=== PATIENT | male | born 1980 | race Two or more races ===

== ENCOUNTER → 2018-10-25 | Outpatient (CLI) | payer OTHER ==
[~2018-10-25] MED LIST: [UNRECOGNIZED DRUG - REMARK]
--- NOTE | 2018-10-25 22:35 | PAIN ---
DATE OF SERVICE: 10/25/2018 INITIAL CONSULTATION FOR PAIN CLINIC CHIEF COMPLAINT: Low back and right lower extremity pain. HISTORY OF PRESENT ILLNESS: This is a 38-year-old male who presents with history of pain in the low back, right lower extremity about 2 years now, not a result of any specific injury or action he is aware of, which is gradually getting worse with time. The patient is active duty with [employer] and has had increased activity and pain resultant over the past 2 years. The patient reports it is stabbing, throbbing, shooting pain, is tingling with numbness and radiation in the right lower extremity, intermittent in intensity. It is cramping and aching on the right side. The patient reports it keeps him awake from sleep at least once or twice a night, does affect his sleep, does affect his bowel or bladder control and he has some increased urgency but no loss of continence reports with urine. The patient reports it does affect his ability to walk, especially with running or jogging. He can only about one mile on his toes, become numb on his right foot and his leg is fatigued heavily where he is limping. The patient reports he has had physical therapy as well as counseling and also doing exercise currently. Physical therapy has been at [place], [place] when he was stationed there in the last year. The patient rates his disability rating from 0 to 10, 10 being the worst, is a 7 with family and home responsibilities, 9 with recreational activities, 6 with social activity, occupation and sexual behavior, self-care and life support activities. The patient did have MRI scan showing degenerative disk changes at L4-L5 and L5-S1. The patient reports no loss of motor function but significant fatigability with right lower extremity with most activities, especially running. PAST MEDICAL HISTORY: Significant only for previous kidney stones. PAST SURGICAL HISTORY: No previous surgeries. CURRENT MEDICATIONS: Include only [id number] anti-inflammatories. SOCIAL HISTORY: The patient reports he does have prescription of pain medication, he is not sure of the name of it but does not take it frequently. FAMILY HISTORY: Significant for no major medical problems or conditions. SOCIAL HISTORY: The patient drinks about one 6-pack of beer a month. He does not smoke but does use chewing tobacco. He is not using illegal, illicit or recreational drugs. He is , lives with his spouse, lives locally in [place], [place]. Again is active duty. ALLERGIES: The patient has no known drug allergies. REVIEW OF SYSTEMS: The patient's review of systems is positive for those items mentioned in history of present illness. All systems reviewed and otherwise negative. It is complete, full and well documented on the patient's chart. PHYSICAL EXAMINATION: VITAL SIGNS: The patient's blood pressure 119/78, pulse 61, respirations 16, temperature is 98.4 degrees Fahrenheit. Height is 5 feet 6 inches and weight is 195 pounds. GENERAL: The patient is awake, alert, oriented, appropriate and very pleasant demeanor. HEENT: Head is normocephalic and atraumatic. Extraocular movements are intact and symmetrical. Oral cavity, mucous membranes are moist and pink. Dentition intact. NECK: Shows anterior throat supple without palpable lymphadenopathy noted. Swallow reflex symmetrical. CHEST: Shows normal on inspection. Breath sounds clear to auscultation bilaterally. HEART: Shows S1 and S2 clear. No murmurs auscultated. ABDOMEN: Soft, nontender and nondistended. No palpable organomegaly is noted. No rebound or guarding demonstrated. BACK: Shows spine grossly in the midline. Normal appearing thoracic kyphosis and some minor flattening of lumbar lordotic curvature. Lumbar paraspinous musculature shows symmetrical on inspection, on palpation shows some moderate tenderness diffusely but only diffusely bilaterally without radiation. The patient shows good rotational motion of lumbar spine, both laterally as well as extension and flexion without significant pain reported. No tenderness over the spinous processes, sacrum or sacroiliac regions. EXTREMITIES: Lower extremities show deep tendon reflexes at 2+ in the patellar, 1+ tendo-calcaneus tendons. Motor exam is approximately 4 on a scale of 5 with right dorsiflexion, extension, quadriceps and hamstring and 5/5 on the left. Peripheral pulses are 1+ posterior tibia. No peripheral edema is noted. Lower extremities are warm and dry to touch, equal in color and appearance. The patient's straight leg raise noted to be positive on the right at about 40 degrees, negative on the left. Gaenslen's and Chriss's maneuvers are negative bilaterally. The patient is able to stand, stand on his toes without difficulty or loss of balance, walks with a slight favoring gait, does appear to favor the right lower extremity with a slight limp, not using any assistive devices such as canes or walkers to ambulate. SKIN: The patient's skin shows warm and dry, good turgor. No edema. No sores, rashes or bruising. IMPRESSION: 1. This is a 38-year-old male with approximate 2-year history of increasing pain in the low back, right lower extremity in a radicular fashion affecting mostly the L4-L5 dermatomal distribution. 2. MRI scan of the lumbar spine as noted. 3. History of kidney stones. PLAN: Options were discussed with the patient including conservative medical management, physical therapies, interventional techniques and he would like to pursue interventional techniques. He has done physical therapy already, still doing physical therapy and exercises on his own and is very active with duty and exercising and running. We discussed a lumbar epidural steroid injection using description as well as anatomical models to describe the procedure well. The patient will wait for preauthorization. We will plan on the L4-L5 level lumbar epidural steroid injection for his radiculopathy in the right lower extremity, L4-L5 dermatomal distribution. The patient will continue to do stretching and strengthening exercises in the meantime and stay as active as possible as tolerated. RUSSELL GARCIA MD DR: DANIELLA/shiraz JOB#: [id number] / [id number]
== END | disposition home or self-care (01) ==
LOC: PNCL 08:58
PROVIDERS: ATTEND Anesthesiology
DX: M79.604 Pain in right leg (principal)
CPT/HCPCS: G0463

== ENCOUNTER → 2018-11-08 | Outpatient (CLI) | payer OTHER ==
[~2018-11-08] MED LIST changes: +IOHEXOL 180 MG/ML 10 ML VIAL. ONE; +methylPREDNISolone ACETATE 40 MG/ML VIAL. ONE; +methylPREDNISolone ACETATE 80 MG/ML VIAL. ONE
--- NOTE | 2018-11-08 09:58 | PAIN ---
DATE OF SERVICE: 11/08/2018 PROGRESS NOTE FOR PAIN CLINIC DIAGNOSES: Lumbar radiculopathy with lumbar degenerative disk disease. HISTORY OF PRESENT ILLNESS: The patient is a 38-year-old male who returns for followup status post initial evaluation and preauthorization for lumbar epidural steroid injection. He still reports pain in low back, right lower extremity as it was significantly unchanged. The patient reports it is a 6 on a scale of 10 at its worst in the past week, 5 on average, 4 at its least and is a 5 today. The patient reports aching, tingling on and off in intensity, worse with walking, standing, changing positions and activity, awakens him from sleep very rarely, but he notes he sleeps about 4 hours a night. The patient reports no new motor or sensory deficits, no new bowel or bladder incontinence or other complaints. PHYSICAL EXAMINATION: VITAL SIGNS: The patient's blood pressure 108/72, pulse 63, respirations 16, temperature 98.1 degrees Fahrenheit, weight is 196 pounds. GENERAL: The patient is awake, alert, oriented, appropriate, very pleasant demeanor. HEENT: Shows normocephalic, atraumatic. Extraocular movements are intact and symmetrical. Oral cavity: Mucous membranes moist and pink. Dentition is intact. NECK: Shows anterior throat supple without palpable lymphadenopathy noted. Swallow reflex symmetrical. CHEST: Shows normal on inspection. Breath sounds are clear to auscultation bilaterally. HEART: Shows S1, S2 clear. No murmurs auscultated. ABDOMEN: Soft, nontender, nondistended. No palpable organomegaly is noted. No rebound or guarding demonstrated. BACK: Shows spine grossly in the midline. Normal appearing thoracic kyphosis and minor flattening of lumbar lordotic curvature. Lumbar paraspinous muscle shows symmetrical on inspection with some moderate tenderness in the low lumbar distribution bilaterally, diffusely without radiation. EXTREMITIES: The patient's lower extremities show deep tendon reflexes 2+ in the patellar, 1+ in the tendo-calcaneus tendons. Motor exam is approximately 4 on a scale of 5 on the right with dorsiflexion and extension 5/5 on the left. Peripheral pulses are 1+ in the posterior tibia. No peripheral edema is noted. The patient's MRI was reviewed as well showing L4-L5 disk extrusion with contact of the right L5 nerve root. Options were discussed with the patient. The patient's old chart was reviewed as his current medication regimen updated. Current review of systems updated today as well. We will proceed with a lumbar epidural steroid injection today with fluoroscopic guidance. Risks were again discussed including, but not limited to bleeding, infection, possibility of epidural hematoma, subsequent neurological compromise, dural puncture, headaches, spinal cord and/or nerve damage, side effects of steroid medication and understands and wished to proceed. The patient will return to clinic in approximately 2 weeks for followup. He was counseled as to return appointment, activity level and side effects to be aware of. DIAGNOSIS: Lumbar radiculopathy with lumbar degenerative disk disease. PROCEDURE: Lumbar epidural steroid injection, translaminar approach L4-L5 level using C-arm fluoroscopic guidance under sterile prep and drape using local anesthetic. MEDICATION INJECTED: A total of 120 mg Depo-Medrol plus 10 mL of preservative-free normal saline and 2 mL of contrast. CONDITION AT DISCHARGE: Stable. The patient tolerated the procedure well, had no complications. RUSSELL GARCIA MD DR: DANIELLA/shiraz JOB#: [id number] / [id number]
== END ==
LOC: PNCL 08:42
PROVIDERS: ATTEND Anesthesiology
DX: M51.16 Intervertebral disc disorders with radiculopathy, lumbar region (principal)
CPT/HCPCS: 62323; J1030; J1040; Q9965

== ENCOUNTER → 2018-11-28 | Outpatient (CLI) | payer OTHER ==
[~2018-11-28] MED LIST changes: -IOHEXOL 180 MG/ML 10 ML VIAL. ONE; -methylPREDNISolone ACETATE 40 MG/ML VIAL. ONE; -methylPREDNISolone ACETATE 80 MG/ML VIAL. ONE
--- NOTE | 2018-11-28 12:46 | PAIN ---
DATE OF SERVICE: 11/28/2018 PROGRESS NOTE FOR PAIN CLINIC DIAGNOSES: Lumbar radiculopathy with lumbar degenerative disk disease and lumbar herniated disk. HISTORY OF PRESENT ILLNESS: The patient is a 38-year-old male who returns for followup status post lumbar epidural steroid injection x 1. The patient reports about 50% improvement overall and he is not having significant pain and just have some numbness in his toes, especially on the right foot with some pain in the low back, which is very minimal. The patient reports it is 2 on a scale of 10 at its worst, average and at its least over the past week and is a 2 today. The patient reports it is aching with some numbness in the right foot, again no new motor or sensory deficits. It is better with sitting or lying down, does not awaken him from sleep at night. He is yet to increase his activity significantly, but he is walking with greater ease and comfort, doing some work activities and household activities with ease and comfort. He would like to get more active. We encouraged him to do so gradually and cautiously. The patient reports no other changes. No new bowel or bladder incontinence or other complaints. PHYSICAL EXAMINATION: VITAL SIGNS: The patient's blood pressure 122/74, pulse 57, respirations are 18, temperature 98.2 degrees Fahrenheit, and weight is 196 pounds. GENERAL: The patient is awake, alert, oriented, appropriate, very pleasant demeanor. HEENT: Shows normocephalic, atraumatic. Extraocular movements are intact and symmetrical. Oral cavity: Mucous membranes moist and pink. Dentition is intact. NECK: Shows anterior throat supple without palpable lymphadenopathy noted. Swallow reflex symmetrical. CHEST: Shows normal on inspection. Breath sounds are clear bilaterally. BACK: Shows spine grossly in the midline. Lumbar paraspinous muscle shows symmetrical on inspection, on palpation shows some mild tenderness, but only diffusely throughout the upper, middle and lower distribution of paraspinous muscles bilaterally, but without radiation, without trigger points. The patient has full rotational motion of lumbar spine, both laterally as well as extension and flexion without difficulty. EXTREMITIES: Lower extremities show deep tendon reflexes at 2+ in the patellar, 1+ tendo-calcaneus tendons. Motor exam is approximately 4 on a scale of 5, right dorsiflexion, extension, 5/5 on the left. Peripheral pulses are 1+. No peripheral edema is noted bilaterally. Options were discussed with the patient. The patient's old chart was reviewed as his current medication regimen updated. Current review of systems updated today as well. We will preauthorize the patient for a second lumbar epidural steroid injection with fluoroscopic guidance, the L4-L5 level for continued, but improved L4-L5 radiculopathy on the right. The patient will continue with stretching and strengthening exercises. I again encouraged him to increase his activity gradually and cautiously. He will do so and return back for a second lumbar epidural steroid injection in approximately 1 week. RUSSELL GARCIA MD DR: DANIELLA/shiraz JOB#: [id number] / [id number]
== END | disposition home or self-care (01) ==
LOC: PNCL 09:58
PROVIDERS: ATTEND Anesthesiology
DX: M51.16 Intervertebral disc disorders with radiculopathy, lumbar region (principal); M51.26 Other intervertebral disc displacement, lumbar region
CPT/HCPCS: G0463